=== PATIENT | male | born 1990 | race Caucasian/White ===

== ENCOUNTER 2021-10-29 13:02 | Emergency (ER) | payer MEDICAID ==
[~2021-10-29] VITALS: Ht 172.7 cm; Wt 79.0 kg
[2021-10-29 13:05] VITALS: BP 124/55
[2021-10-29] MEDS ORDERED: IBUP-2030 MT (13:24)
[2021-10-29] MEDS ORDERED: SULF1TAB48 MT (13:24)
[2021-10-29] MEDS ORDERED: CEPH500C2 MT (13:24)
[2021-10-29] MEDS ORDERED: CEPHALEXIN 250MG CAPSULE PO ONE (13:30)
[2021-10-29] MEDS ORDERED: TETANUS, DIPHTHERIA, PERTUSSIS VAC/PF 0.5ML (>10YR OLD) IM ONE (13:30)
[2021-10-29] MEDS ORDERED: SULFAMETHOXAZOLE/TRIMETHOPRIM 800/160MG TABLET PO ONE (13:30)
[2021-10-29] MEDS ORDERED: IBUPROFEN 800MG TABLET PO ONE (13:30)
[2021-10-29] MEDS ORDERED: BACITRACIN ZINC OINT UDPKT TOP ONE (13:30)
== END 2021-10-29 14:29 | disposition home or self-care (01) ==
LOC: ER 13:02
DX: L03.115 Cellulitis of right lower limb (principal)
CPT/HCPCS: 99283